=== PATIENT | male | born 1975 | race Asian ===

== ENCOUNTER 2020-11-05 08:38 | Inpatient (IN) | payer BC ==
[~2020-11-05] VITALS: Ht 170.2 cm; Wt 99.9 kg
[2020-11-05 09:13] LABS: PCO2 Arterial 30.4 mmHg (35-45); PO2 Arterial 61.9 mmHg (80-100); pH Blood Arterial 7.22 (7.35-7.45)
[2020-11-05 09:15] LABS: Hematocrit 46.6 % (37.0-53.0); Hemoglobin 15.3 g/dL (13.5-17.5); Mean Corpuscular HGB 28.6 pg (26.0-34.0); Mean Corpuscular HGB Conc 32.8 g/dL (31.5-36.5); Mean Corpuscular Volume 87 fL (80-100); Mean Platelet Volume 9.5 fL (9.1-12.4); NRBC ABSOLUTE 0.03 K/mm3 (0.00-0.02); NRBC Auto 0.5 /100 WBC (0.0-0.2); Platelet Count 437 K/mm3 (150-400); RDW Coefficient Variation 13.6 % (11.7-14.2); RDW Standard Deviation 43.3 fL (35.1-46.3); Red Blood Cell Count 5.35 M/mm3 (4.30-5.90); White Blood Cell Count 5.86 K/mm3 (4.00-11.30)
[2020-11-05 09:29] LABS: Albumin/Globulin Ratio 0.6 (0.8-1.8); Bilirubin, Total 0.6 mg/dL (0.1-1.0); Bun/Creatinine Ratio 8.3 (12.0-20.0); Calcium, Blood 8.3 mg/dL (8.5-10.1); Creatinine, Blood 6.17 mg/dL (0.60-1.20); Globulin, Blood 5.1 g/dL (2.2-4.0); Potassium, Blood 4.1 mmol/L (3.5-5.5); Total Protein, Blood 8.1 g/dL (6.4-8.2); Troponin I 0.016 ng/mL (0.000-0.040)
[2020-11-05 09:51] LABS: SARS-Cov-2 (COVID-19) PCR, MMC POSITIVE (NEGATIVE)
[2020-11-05 10:14] LABS: BAND PERCENT MAN 49 % (0-8); BASOPHILS PERCENT MAN 0 % (0-2); EOSINOPHILS PERCENT MAN 0 % (0-6); LYMPHOCYTES PERCENT MAN 24 % (21-46); METAMYELOCYTE ABSOLUTE MAN 0.05 K/mm3 (0.00-0.00); METAMYELOCYTE PERCENT MAN 1 % (0-0); MONOCYTES ABSOLUTE MAN 0.17 K/mm3 (0.16-1.47); MONOCYTES PERCENT MAN 3 % (4-13); MYELOCYTE ABSOLUTE MAN 0.29 K/mm3 (0.00-0.00); MYELOCYTE PERCENT MAN 5 % (0-0); NEUTROPHILS ABSOLUTE MAN 3.92 K/mm3 (1.96-9.15); SEG NEUTROPHILS PERCENT MAN 18 % (41-73); TOTAL CELLS COUNTED 100
[2020-11-05 11:06] LABS: CHOL/HDL RATIO 3.7; Cholesterol 99 mg/dL (50-200); HDL Cholesterol 27 mg/dL (>39); LDL/HDL RATIO 1.4; Low Density Lipoprotein Chol 37 mg/dL (0-110); Triglycerides 176 mg/dL (30-160); Very Low Density Lipoprot Chol 35 mg/dL (6-32)
--- NOTE | 2020-11-05 11:24 | NUR ---
Upon recieving a request from the ER for spiritual care, I visit ER3. I learn of patient's condition and that the patient's spouse, Amparo is headed to the hospital. I meet her at the ambulance entrance (because she is sick with COVID-19) and lead her to ER3. She is informed of patient's dire medical situation, she speaks to patient briefly before he is transported to the cathlab. I then provide emotional support and prayer for Amparo and lead her to ER lobby to update her information. I proceed to walk her to her car because Amparo is so weak she can hardly walk. She insists that she is well enough drive and that she only lives a short distance from the hospital. I will continue to remain available to patient and family.
[2020-11-05 12:35] LABS: PCO2 Arterial 67.3 mmHg (35-45); PO2 Arterial 45.1 mmHg (80-100); pH Blood Arterial 7.03 (7.35-7.45)
[2020-11-05 13:16] LABS: Hematocrit 41.1 % (37.0-53.0); Hemoglobin 13.5 g/dL (13.5-17.5)
[2020-11-05 14:14] LABS: Albumin, Blood 2.1 g/dL (3.4-5.0); Albumin/Globulin Ratio 0.6 (0.8-1.8); Bilirubin, Total 0.7 mg/dL (0.1-1.0); Calcium, Blood 7.2 mg/dL (8.5-10.1); Creatinine, Blood 5.64 mg/dL (0.60-1.20); Globulin, Blood 3.8 g/dL (2.2-4.0); Potassium, Blood 4.8 mmol/L (3.5-5.5)
[2020-11-05 14:15] LABS: Total Protein, Blood 5.9 g/dL (6.4-8.2)
[2020-11-05 15:55] LABS: Source, Urine Catheter
[2020-11-05 15:58] LABS: Appearance, Urine Cloudy (Clear); Bilirubin, Urine Neg (Neg); Blood, Urine 5+ (Neg); Color, Urine Yellow (P-Yellow); Glucose Qualitative, Urine Neg (Neg); Ketones, Urine Neg (Neg); Leukocyte Esterase, Urine Neg (Neg); Nitrite, Urine Neg (Neg); Protein, Urine 3+ (Neg); Specific Gravity, Urine 1.015 (1.003-1.022); Urobilinogen, Urine NORM (Normal)
[2020-11-05 16:07] LABS: Red Blood Cells, Urine 0-2 /hpf (0-2)
[2020-11-05 16:08] LABS: Bacteria Mod /hpf; Squamous Epithelial Cells Rare /hpf (Few); Transitional Epithelial Cells Rare /hpf (0-Rare)
[2020-11-05 16:09] LABS: Amorphous Light (0-Heavy)
[2020-11-05 16:34] LABS: PCO2 Arterial 71.2 mmHg (35-45); PO2 Arterial 51.3 mmHg (80-100)
--- NOTE | 2020-11-05 16:41 | NUR ---
Patient's spouse, Amparo is at [facility] and needed full PPE to enter the building due to being positive for COVID and having symptoms. I also provide a wheelchair because Amparo is to weak to walk. SHe states that she will check herself into ER when she is done visiting her . I provide a calming presence and emotional support. I will continue to remain available to patient and family.
[2020-11-05 19:06] LABS: PCO2 Arterial 55.3 mmHg (35-45); PO2 Arterial 56.8 mmHg (80-100)
--- NOTE | 2020-11-05 19:39 | NUR ---
ASSUMED CARE OF PT AT 1900, REPORT RECEIVED FROM KARISHMA WALTERS. PT INTUBATED, VENT SETTINGS PC 17, PEEP 22, FIO2 100% RATE 28. HR ST 119-120'S ON MONITOR, SBP 140'S, SPO2 88-90%. PT UNRESPONSIVE AT THIS TIME. CURRENTLY INFUSING: EPI @ 10 MCG/KG, LEVO @ 35 MCG/KG, VASO @ 0.04 MCG/KG, FENTANYL @ 75 MCG/HR, BICARB @ 150 ML/HR, PROPOFOL AND NIMBEX CURRENTLY ON STANDBY DUE TO PT BEING UNRESPONSIVE. SCHREIBER DRAINING CLOUDY YELLOW URINE TO GRAVITY. SCANT SECRETIONS VIA ETT. PUPILS 1, SLUGGISH TO REACT. AND BROTHER AT BEDSIDE, UPDATED ON PT'S CONDITION BY LIAM WALTERS.
--- NOTE | 2020-11-05 19:41 | NUR ---
TO ICU PT ARRIVED TO ICU FROM [facility] AT 1210 WITH TR BAND AND R GROIN COOLING CATH IN PLACE, BOTH SITES WNL. HR SIT 110-120, BP SLIGHTLY HYPOTENSIVE, LEVOPHED STARTED AT 5MCG WITH GOOD RESULTS. LS DIMINISHED T/O, SCANT ETT SECRETIONS. SPO2 70'S DESPITE REPOSITIONING AND SUCTIONING, PEAK PRESSURE 39, RR 26. VENT SETTINGS ADJUSTED TO AC 26, PC 15, Ti 1.2, FIO2 100%, PEEP 20, PT HAD SLIGHT INCREASE IN SPO2 TO HIGH 80'S. PT THEN PRONED, SPO2 DID NOT IMPROVE. NEW ORDERS FOR BICARB FOR ABG RESULTS, ADMINISTERED. PT'S SPO2 CONTINUED TO DECREASE TO 50'S, UNABLE TO OBTAIN BP READING, HR DECREASED TO 70'S, AT BEDSIDE. PT REPOSITIONED SUPINE IN PREPARATION FOR CODE, FENTANYL, PROPOFOL, AND NIMBEX OFF PER . 1 AMP EPI AND 1 AMP BICARB GIVEN IVP, LEVO INCREASED, EPI AND VASO INITIATED AT MAX RATES. DURING THIS EVENG, PT BEGAN BLEEDING FROM TR BAND SITE, 13ML ADDED BACK INTO TR BAND FOR HEMOSTASIS, NO HEMATOMA NOTED. ART LINE PLACED IN L GROIN BY DR. FRANKS, BP STABLE WITH LEVO 35MCG, EPI 10MCG, VASO 0.04U. FENTANYL RESUMED AT 75MCG/HR, NIMBEX AND PROPOFOL REMAIN OFF. PT IN RESTRAINTS, UNRESPONSIVE AT THIS TIME. ABG DRAWN. VENT SETTINGS CURRENTLY AC 28, PC 17, Ti 1.2, FIO2 100%, PEEP 22. SPO2 88%, PEAK PRESSURE 40. HR 120 SIT. AT BEDSIDE, GIVEN UPDATE. ECHO DONE. REPORT.
--- NOTE | 2020-11-05 22:54 | NUR ---
NIMBEX RESTARTED AT 2 MCG/KG. TO4 / PRIOR TO RESTARTING. PROPOFOL INCREASED TO 30 MCG/KG, BIS READING 70-80'S. PT PEAK PRESSURES 40-45, NOT OVER BREATHING VENT. ABD AND CHEST WORKING TO HELP WITH BREATHING.
[2020-11-06 00:36] LABS: PCO2 Arterial 50.8 mmHg (35-45); PO2 Arterial 58.2 mmHg (80-100); pH Blood Arterial 7.18 (7.35-7.45)
--- NOTE | 2020-11-06 02:38 | NUR ---
REPORT CALLED AND GIVEN TO MICHAEL WALTERS AT [facility]. PT BEING TRANSFERRED VIA [employer]. DR FRANKS IN UNIT DURING TRANSFER OF PT. LAST SET OF VITALS HR 110 ST ON MONITOR, SBP VIA ART LINE 135/67, SPO2 87%, RR 27. PT'S FAMILY NOTIFIED OF TRANSFER, NO BELONGINGS FOUND IN PT'S ROOM TO TRANSFER WITH PT TO [facility]. PT TRANSFERRED OFF UNIT AT 0225.
== END 2020-11-06 02:25 | disposition short-term general hospital (02) | DRG 871 ==
LOC: ER 08:38 → ICUW 10:48 → ICUE 10:48
PROVIDERS: Internal Medicine; Internal Medicine Critical Care Medicine; Physician Assistant; Student in an Organized Health Care Education/Training Program; ADMIT Internal Medicine Cardiovascular Disease
PROC: 5A09357 Assistance with Respiratory Ventilation, Less than 24 Consecutive Hours, Continuous Positive Airway Pressure (ICD-10-PCS; principal; 2020-11-05)
PROC: 0BH18EZ Insertion of Endotracheal Airway into Trachea, Via Natural or Artificial Opening Endoscopic (ICD-10-PCS; 2020-11-05)
PROC: 5A1935Z Respiratory Ventilation, Less than 24 Consecutive Hours (ICD-10-PCS; 2020-11-05)
PROC: 04HY32Z Insertion of Monitoring Device into Lower Artery, Percutaneous Approach (ICD-10-PCS; 2020-11-05)
PROC: 4A133B1 Monitoring of Arterial Pressure, Peripheral, Percutaneous Approach (ICD-10-PCS; 2020-11-05)
PROC: 4A133J1 Monitoring of Arterial Pulse, Peripheral, Percutaneous Approach (ICD-10-PCS; 2020-11-05)
PROC: 4A023N7 Measurement of Cardiac Sampling and Pressure, Left Heart, Percutaneous Approach (ICD-10-PCS; 2020-11-05)
PROC: B2111ZZ Fluoroscopy of Multiple Coronary Arteries using Low Osmolar Contrast (ICD-10-PCS; 2020-11-05)
PROC: 3E033XZ Introduction of Vasopressor into Peripheral Vein, Percutaneous Approach (ICD-10-PCS; 2020-11-05)
PROC: 3E0333Z Introduction of Anti-inflammatory into Peripheral Vein, Percutaneous Approach (ICD-10-PCS; 2020-11-05)
PROC: 3E03329 Introduction of Other Anti-infective into Peripheral Vein, Percutaneous Approach (ICD-10-PCS; 2020-11-05)
PROC: 8E0ZXY6 Isolation (ICD-10-PCS; 2020-11-05)
PROC: 5A12012 Performance of Cardiac Output, Single, Manual (ICD-10-PCS; 2020-11-06)
DX: A41.89 Other specified sepsis (principal); R65.21 Severe sepsis with septic shock; J96.01 Acute respiratory failure with hypoxia; U07.1 COVID-19; I21.09 ST elevation (STEMI) myocardial infarction involving other coronary artery of anterior wall; N17.0 Acute kidney failure with tubular necrosis; J12.82 Pneumonia due to coronavirus disease 2019; I46.2 Cardiac arrest due to underlying cardiac condition; K29.61 Other gastritis with bleeding; E87.2 Acidosis; I44.7 Left bundle-branch block, unspecified; Z88.6 Allergy status to analgesic agent; I10 Essential (primary) hypertension; E66.9 Obesity, unspecified; Z68.37 Body mass index [BMI] 37.0-37.9, adult
CPT/HCPCS: 31500; 36415; 36556; 36600; 36620; 51702; 71045; 71260; 76937; 80053; 80061; 81001; 82330; 82803; 83605; 83880; 84145; 84484; 85014; 85018; 85025; 85347; 85379; 86140; 87040; 87086; 87186; 92950; 93005; 93010; 93458; 94002; 96374-59; 96375-59; 96376-59; 99291-25; A9270; C1751; C1769; C1887; C1894; C8929; C9113; J0171; J0456; J0610; J1100; J1644; J2060; J2250; J2370; J2543; J2704; J3010; J3370; J3475; J7030; J7040; J7050; J7060; J7070; J7120; Q9957; Q9967; U0004